=== PATIENT | female | born 1975 | race Caucasian/White ===

== ENCOUNTER 2018-08-24 18:25 | Emergency (ER) | payer MEDICAID, MEDICARE ==
[~2018-08-24] VITALS: Ht 152.4 cm; Wt 48.0 kg
[~2018-08-24 18:25] MED LIST: ASCO-339 PO; CALC-700 PO; MULT-348 PO
[2018-08-24] MEDS ORDERED: SODIUM CHLORIDE 0.9% 1,000 ML IV ONE (23:00)
[2018-08-24] MEDS ORDERED: ONDANSETRON HCL 4MG/2ML INJ IV STA (23:00)
[2018-08-24 23:15] LABS: BASOPHILS % 0.3 % (0.0-2.0); EOSINOPHILS % 0.2 % (0.0-5.0); HEMATOCRIT. 42.3 % (36.0-48.0); HEMOGLOBIN. 14.2 g/dL (12.0-16.0); LYMPHOCYTES % 8.1 % (20.0-50.0); MEAN CORPUSCULAR HEMOGLOBIN 32.1 pg (28.0-32.0); MEAN CORPUSCULAR VOLUME 95.8 fL (81.0-99.0); MEAN PLATELET VOLUME 8.7 fl (7.4-10.4); MONOCYTES % 5.3 % (2.0-8.0); NEUTROPHILS % 86.1 % (40.0-76.0); PLATELET 318 x1000/uL (130-400); RED BLOOD CELL COUNT 4.41 mill/uL (4.2-5.4); RED CELL DISTRIBUTION WIDTH 12.8 % (11.6-14.6)
[2018-08-24 23:20] LABS: CHLORIDE 107 mEq/L (98-107)
[2018-08-25 03:28] VITALS: BP 118/73
[2018-08-25] MEDS ORDERED: IOHEXOL-350 100 ML BOTTLE ONE (03:35)
== END 2018-08-25 03:30 | disposition home or self-care (01) ==
LOC: ER 18:25
DX: R53.1 Weakness (principal)
CPT/HCPCS: 36415; 71045; 71275; 80053; 84484; 85025; 93005; 96374; 99284; J2405; J7030; Q9967